=== PATIENT | female | born 1950 ===

== ENCOUNTER 2025-07-06 11:37 | Day surgery (SDC) | payer BC, MEDICAID ==
[2025-07-06] VITALS (10 sets, daily range): BP systolic 117–182; BP diastolic 52–79; PULSE 69–90; RESP 11–18; TEMP 98.1; O2SAT 92–95
[~2025-07-06] VITALS: Ht 172.7 cm; Wt 146.4 kg
[~2025-07-06 11:37] MED LIST: ASPI-1265 PO; ATOR10TA70 PO; BACL10TA2 PO; EVOL140P3 SQ; FLUT1BLS3 INH; LORA10CA PO; LOSA50TA64 PO; METO-395 PO; NIFE90TA61 PO; NORT10CA2 PO
--- NOTE | 2025-07-06 12:17 | ELECTROCARDIOGRAPH REPORT ---
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 MARIA Rosas Measurements Intervals [place] Rate: 78 P: 66 NE: 157 QRS: 64 QRSD: 100 T: 72 QT: 396 QTc: 452 Interpretive Statements Sinus rhythm Baseline wander in lead(s) V6 Electronically Signed On 07-06-2025 17:32:[address] MARIA Rosas Please click the below link to view image of tracing.
[2025-07-06] MEDS ORDERED: MULT-1085 PO (12:26)
[2025-07-06 13:16] LABS: MEAN PLATELET VOLUME 8.1 FL (7.4-10.4); RED CELL DISTRIBUTION WIDTH 13.9 % (11.5-14.5)
[2025-07-06 13:28] LABS: CREATININE 0.66 MG/DL (0.40-0.90); TOTAL CARBON DIOXIDE 25.2 MMOL/L (24-32); eCRCL 73 ML/MIN; eGFR 87 ML/MIN
[2025-07-06 13:29] LABS: APTT 29 SECONDS (22-32); INR 1.1 INR
[2025-07-06] MEDS ORDERED: midazolam 1 mg/ML 2ml injection ONE ×2 (14:08→14:41)
[2025-07-06] MEDS ORDERED: verapamil 2.5 mg/ml inj IV ONE (14:08)
[2025-07-06] MEDS ORDERED: nitroGLYCERIN 500mcg/5mL D5W 5 ML IV ONE (14:09)
[2025-07-06] MEDS ORDERED: heparin 1,000unit/ml 10ml vial 10 ML ONE (14:09)
[2025-07-06] MEDS ORDERED: fentaNYL/PF 50MCG/1 ML 2ML syringe ONE ×2 (14:09→14:41)
[2025-07-06] MEDS ORDERED: LIDOcaine 1% 30ml preserv. free vial ONE (14:34)
[2025-07-06] MEDS ORDERED: HYDROcodone/acetaminophen 5mg/325mg tablet PO PRN (16:10)
[2025-07-06] MEDS ORDERED: ondansetron/PF 4mg/2ml inj IV PRN (16:10)
[2025-07-06] MEDS ORDERED: HYDROcodone/acetaminophen 10/325mg tab PO PRN (16:10)
[2025-07-06] MEDS ORDERED: OXAZEpam 15mg capsule PO PRN (16:10)
--- NOTE | 2025-07-23 19:58 | CARDIOLOGY REPORT ---
DATE OF SERVICE: 07/06/2025 DICTATING PHYSICIAN: Davy Devlin MD CARDIAC CATHETERIZATION REPORT DATE OF STUDY: 07/06/2025. PROCEDURES: 1. Left heart catheterization. 2. Selective coronary angiography. 3. Left ventriculography. 4. Conscious sedation monitoring time for 15 minutes. INDICATION: 1. Chest pain. 2. Abnormal stress test. DESCRIPTION OF PROCEDURE: After informed consent was obtained, the patient was brought to the cardiac warehouse general laborer in a fasting state where the patient was prepped and draped in the usual sterile manner. After adequate anesthesia was obtained using 1% lidocaine to the right wrist, a 5-Mongolian sheath was inserted into the right radial artery using a modified Seldinger technique. Thereafter, using a cocktail of heparin, verapamil and nitroglycerin, the cocktail was given via the sheath in the radial artery to prevent coronary vasospasm and for anticoagulation. Next, using an Ultimate-2 catheter, the catheter was advanced under fluoroscopy guidance into the ascending aorta. The catheter was then manipulated to engage the left coronary system and coronary angiography of the left system was obtained. Next, the catheter was disengaged and manipulated to engage the right coronary artery and selective coronary angiography of the right coronary artery was obtained. Thereafter, the catheter was disengaged from the right coronary artery and manipulated to advance into the left ventricle where left ventriculography in the HERRERA position was obtained. The catheter was then removed. Hemostasis was obtained using the radial band. HEMODYNAMICS: Please refer to the event log. Left ventricular end diastolic pressure is 10 mmHg. FINDINGS: The left main coronary artery is a normal caliber vessel free of significant disease. The left anterior descending coronary artery is a normal caliber vessel with mild luminal irregularities. 20% proximal LAD stenosis is noted. 20-30% stenosis of the mid LAD is also noted. The circumflex coronary artery is a large caliber vessel with mild luminal irregularities. The right coronary artery is a normal caliber dominant vessel with mild luminal irregularities throughout its mid portion. Left ventriculography revealed the presence of normal left ventricular function. Left ventricular end diastolic pressure is 10 mmHg. IMPRESSION: 1. Mild luminal irregularities with no significant coronary artery disease by angiography. 2. Normal left ventricular function. 3. Left ventricular end diastolic pressure is 8 mmHg. Davy Devlin MD TID: [id number] RECEIPT: [id number] JELANI/SEE
== END 2025-07-06 18:00 | disposition home or self-care (01) ==
LOC: SSTAY O 11:37
PROVIDERS: ATTEND Student in an Organized Health Care Education/Training Program
DX: I25.10 Atherosclerotic heart disease of native coronary artery without angina pectoris (principal); R07.9 Chest pain, unspecified; R94.30 Abnormal result of cardiovascular function study, unspecified; E78.5 Hyperlipidemia, unspecified; I11.0 Hypertensive heart disease with heart failure; I50.9 Heart failure, unspecified; J44.89 Other specified chronic obstructive pulmonary disease; Z90.710 Acquired absence of both cervix and uterus; Z85.820 Personal history of malignant melanoma of skin; Z86.73 Personal history of transient ischemic attack (TIA), and cerebral infarction without residual deficits
CPT/HCPCS: 36415; 80048; 85025; 85610; 85730; 93005; 93458; 99152; J1644; J2003; J2250; J3010; J3490; J7030; Q0163; Q9967; 99153; A6258; A6402; C1894